=== PATIENT | female | born 1975 | race Caucasian/White ===

== ENCOUNTER → 2017-10-04 | Outpatient (REF) | payer OTHER | LOC: M SFHCWAGY 13:33 | PROVIDERS: ATTEND Nurse Practitioner Women's Health | DX: Z12.4 Encounter for screening for malignant neoplasm of cervix (principal) ==

== ENCOUNTER → 2017-10-04 | Outpatient (CLI) | payer OTHER ==
--- NOTE | 2017-10-04 14:22 | REPMRS ---
Patient History The patient states she had a clinical breast exam in 10/09 Patient is nulliparous. Family history of breast cancer in paternal grandmother and colorectal cancer in maternal grandmother at age 50 or over. Digital Woman Screen Mammo: October 04, 2017 - Exam #: [id number] Bilateral CC and MLO view(s) were taken. Technologist: Aniya Moon, Technologist Prior study comparison: October 01, 2016, digital woman screen mammo performed at [facility]. October 01, 2015, digital woman screen mammo performed at [facility]. FINDINGS: The breast tissue is heterogeneously dense. This may lower the sensitivity of mammography. There has been no change in the appearance of the mammogram from the prior studies. There is a moderate amount of residual fibroglandular tissue which is fairly symmetric. There is no interval development of dominant mass, areas of architectural distortion, or clustered microcalcification typical of malignancy. ASSESSMENT: BI-RADS/ACR category 1 mammogram. Negative. Recommendation Routine screening mammogram in 1 year (for women over age 40). This mammogram was interpreted with the aid of an FDA-approved computer-aided dectection system. Electronically Signed By: Antonio Brown MD 10/04/17 [id number]
== END ==
LOC: M WHC 13:21
PROVIDERS: ATTEND Nurse Practitioner Women's Health
DX: Z12.31 Encounter for screening mammogram for malignant neoplasm of breast (principal); Z80.3 Family history of malignant neoplasm of breast

== ENCOUNTER → 2018-10-05 | Outpatient (CLI) | payer OTHER | LOC: M WHC 13:35 | DX: Z12.31 Encounter for screening mammogram for malignant neoplasm of breast (principal); Z80.3 Family history of malignant neoplasm of breast; Z80.0 Family history of malignant neoplasm of digestive organs | CPT/HCPCS: 77067 ==

== ENCOUNTER → 2019-04-24 | Outpatient (CLI) | payer OTHER ==
[~2019-04-24] MED LIST: PROHANCE 279.3MG/ML 15ML VIAL (A9576) As Ordered ONE
--- NOTE | 2019-04-25 10:19 | REP ---
MRI BILATERAL BREASTS WITH AND WITHOUT CONTRAST: HISTORY: Increased risk of breast cancer, with family history of breast cancer. Two grandmothers with history of breast cancer. Correlation mammogram 10/05/2018 as well as other prior exams. TECHNIQUE: Multiple sequences obtained in the axial, coronal and sagittal planes prior to and following the intravenous administration of 12 mL ProHance. Images are evaluated in the [employer] software including dynamic post gadolinium imaging, subtraction images, color overlay and CAD imaging as well as reconstruction. There is a moderate amount of fibroglandular tissue bilaterally. Several subcentimeter cysts are seen in each breast, predominantly anteriorly. There is mild background parenchymal enhancement. There is no axillary adenopathy. There is no suspicious enhancing mass. No morphologic abnormality is seen. IMPRESSION: BIRADS category 2 benign bilateral breast MRI. No suspicious or morphologic abnormality. Several small cysts are seen in each breast. Electronically Signed by Antonio Brown MD 04/25/2019 04:19 P
== END ==
LOC: M RAD 14:45
PROVIDERS: ATTEND Nurse Practitioner Women's Health
DX: R92.2 Inconclusive mammogram (principal); N60.11 Diffuse cystic mastopathy of right breast; N60.12 Diffuse cystic mastopathy of left breast
CPT/HCPCS: A9576; C8908

== ENCOUNTER → 2019-10-09 | Outpatient (CLI) | payer OTHER ==
--- NOTE | 2019-10-09 15:53 | REPMRS ---
Patient History The patient states she had a clinical breast exam in September 2019.Family history of breast cancer at age 50 or over in paternal grandmother, colorectal cancer at age 50 or over in maternal grandmother, colorectal cancer in maternal grandfather, colorectal cancer at age 50 or over in maternal aunt. Digital Woman Screen Mammo: October 09, 2019 - Exam #: [id number] Bilateral CC and MLO view(s) were taken. Technologist: Kate Summers, Technologist Prior study comparison: October 05, 2018, bilateral digital woman screen mammo performed at [facility]. October 04, 2017, digital woman screen mammo performed at [facility]. October 01, 2016, digital woman screen mammo performed at [facility]. FINDINGS: The breast tissue is heterogeneously dense. This may lower the sensitivity of mammography. There is a moderate amount of heterogeneously dense fibroglandular tissue which is fairly symmetric. There is no interval development of dominant mass, architectural distortion, or grouped microcalcification typical of malignancy. There has been no change in the appearance of the mammogram from the prior studies. 3-D tomosynthesis shows no additional findings. Assessment: BI-RADS/ACR category 1 mammogram. Negative Mammogram. Recommendation Routine screening mammogram of both breasts in 1 year (for women over age 40). This patient's Lifetime Breast Cancer RIsk is estimated at 18.8 %. This mammogram was interpreted with the aid of an FDA-approved computer-aided dectection system. Electronically Signed By: Cristian Casanova MD 10/09/19 [id number]
== END ==
LOC: M WHC 13:19
PROVIDERS: ATTEND Nurse Practitioner Women's Health
DX: Z12.31 Encounter for screening mammogram for malignant neoplasm of breast (principal)

== ENCOUNTER → 2020-10-10 | Outpatient (REF) | payer OTHER | LOC: M SFHCWAGY 17:10 | PROVIDERS: ATTEND Nurse Practitioner Women's Health | DX: Z12.4 Encounter for screening for malignant neoplasm of cervix (principal) ==

== ENCOUNTER → 2020-10-10 | Outpatient (CLI) | payer OTHER ==
--- NOTE | 2020-10-10 16:13 | REPMRS ---
Patient History The patient states she had a clinical breast exam in 09/2020 Patient is postmenopausal and is nulliparous. Family history of breast cancer at age 50 or over in paternal grandmother, colorectal cancer at age 50 or over in maternal grandmother, colorectal cancer in maternal grandfather, colorectal cancer at age 50 or over in maternal aunt. Digital Woman Screen Mammo: October 10, 2020 - Exam #: [id number] Bilateral CC and MLO view(s) were taken. Technologist: Aniya Moon, Technologist Prior study comparison: October 09, 2019, bilateral digital woman screen mammo performed at [facility]. October 05, 2018, bilateral digital woman screen mammo performed at [facility]. October 04, 2017, digital woman screen mammo performed at [facility]. FINDINGS: There are scattered fibroglandular densities. The Volpara volumetric breast density category is:B. There has been no change in the appearance of the mammogram from the prior studies. There is a mild amount of scattered fibroglandular density which is fairly symmetric. There is no interval development of dominant mass, architectural distortion, or grouped microcalcification suggestive of malignancy. 3-D tomosynthesis shows no additional findings. Assessment: BI-RADS/ACR category 1 mammogram. Negative Mammogram. Recommendation Routine screening mammogram of both breasts in 1 year (for women over age 40). This patient's [facility] Lifetime Breast Cancer Risk is estimated at 17.3 %. This mammogram was interpreted with the aid of an FDA-approved computer-aided dectection system. Electronically Signed By: Cristian Casanova MD 10/10/20 [id number]
== END ==
LOC: M WHC 13:46
PROVIDERS: ATTEND Nurse Practitioner Women's Health
DX: Z12.31 Encounter for screening mammogram for malignant neoplasm of breast (principal)

== ENCOUNTER → 2021-10-12 | Outpatient (CLI) | payer OTHER | LOC: M WHC 13:26 | PROVIDERS: ATTEND Nurse Practitioner Women's Health | DX: Z12.31 Encounter for screening mammogram for malignant neoplasm of breast (principal) ==

== ENCOUNTER → 2022-05-11 | Outpatient (REF) | payer OTHER ==
[2022-05-11 13:36] LABS: FOLLICLE STIMULATING HORMONE 137.4 mIU/mL; LUTEINIZING HORMONE 80.8 mIU/mL
== END ==
LOC: M LAB REF 12:33
PROVIDERS: ATTEND Registered Nurse
DX: N95.9 Unspecified menopausal and perimenopausal disorder (principal)

== ENCOUNTER → 2022-10-13 | Outpatient (CLI) | payer OTHER | LOC: M WHC 13:17 | PROVIDERS: ATTEND Nurse Practitioner Family | DX: Z12.31 Encounter for screening mammogram for malignant neoplasm of breast (principal) ==

== ENCOUNTER → 2022-10-13 | Outpatient (REF) | payer OTHER | LOC: M PLALAB 14:41 | PROVIDERS: ATTEND Nurse Practitioner Family | DX: Z12.4 Encounter for screening for malignant neoplasm of cervix (principal); R87.615 Unsatisfactory cytologic smear of cervix | CPT/HCPCS: 87624; G0123 ==

== ENCOUNTER → 2022-11-08 | Outpatient (REF) | payer OTHER | LOC: M PLALAB 14:23 | PROVIDERS: ATTEND Nurse Practitioner Family | DX: Z12.4 Encounter for screening for malignant neoplasm of cervix (principal) ==

== ENCOUNTER 2023-05-30 12:02 | Day surgery (SDC) | payer OTHER ==
[~2023-05-30] VITALS: Ht 170.2 cm; Wt 58.3 kg
[~2023-05-30 12:02] MED LIST changes: +LIDOCAINE 2% 100MG/5ML SDV (FOR ANES.) As Ordered ONE; +NS 1,000 ML IV ONE; -PROHANCE 279.3MG/ML 15ML VIAL (A9576) As Ordered ONE; +propofoL 200 MG/20 ML VIAL As Ordered ONE
[2023-05-30 13:43] VITALS: TEMP 96.5
[2023-05-30 14:04] VITALS: BP 115/59; O2SAT 99
== END 2023-05-30 14:13 | disposition home or self-care (01) ==
LOC: M OPP 12:02
PROVIDERS: ATTEND Internal Medicine Gastroenterology
DX: Z12.11 Encounter for screening for malignant neoplasm of colon (principal); D12.6 Benign neoplasm of colon, unspecified; K64.0 First degree hemorrhoids

== ENCOUNTER → 2023-11-07 | Outpatient (CLI) | payer OTHER | LOC: M WHC 14:06 | PROVIDERS: ATTEND Nurse Practitioner Family | DX: Z12.31 Encounter for screening mammogram for malignant neoplasm of breast (principal); R92.323 Mammographic fibroglandular density, bilateral breasts ==

== ENCOUNTER → 2025-06-12 | Outpatient (CLI) | payer OTHER | LOC: M WHC 08:43 | PROVIDERS: ATTEND Obstetrics & Gynecology | DX: Z12.31 Encounter for screening mammogram for malignant neoplasm of breast (principal); R92.323 Mammographic fibroglandular density, bilateral breasts ==